=== PATIENT | male | born 1975 | race Caucasian/White ===

== ENCOUNTER → 2018-06-21 08:22 | Outpatient (CLI) | payer OTHER, SELFPAY ==
[2018-06-21 09:45] LABS: Cholesterol 151 mg/dL (200); Glucose 93 mg/dL (74-106); High Density Lipoprotein 38 mg/dL; PSA,Total - Annual Screen 0.62 ng/mL (0.00-4.00); Triglycerides 68 mg/dL; Very Low Density Lipoprotein 14 mg/dL (5-40)
== END ==
PROVIDERS: Family Provider Family Medicine; PCP Family Medicine; Referring Provider Family Medicine; Visit Provider Family Medicine
DX: Z13.220 Encounter for screening for lipoid disorders (principal); Z13.1 Encounter for screening for diabetes mellitus; Z80.42 Family history of malignant neoplasm of prostate
CPT/HCPCS: 36415; 80061; 82947; 84153; G0103

== ENCOUNTER → 2019-11-14 09:20 | Outpatient (CLI) | payer OTHER, SELFPAY ==
[2019-11-12 17:39] VITALS: BMI 30.7
--- NOTE | 2019-11-14 09:29 | RAD_ITS ---
STUDY: X-RAY - SACRUM/COCCYX REASON FOR EXAM: Male, 44 years old. posterior pelvic pain when lying down, no trauma TECHNIQUE: 3 view(s) of the sacrum and coccyx were obtained. COMPARISON: None. FINDINGS: There is degenerative arthrosis of the bilateral sacroiliac joints. Normal visualized sacral ala and fused sacral bodies. Normal sacrococcygeal junction with a normal angulation. Normal coccygeal segments. The presacral soft tissue structures are unremarkable. There is no demonstrated fracture. RAD/Sacrum-Coccyx min 2 Views IMPRESSION: Unremarkable x-rays of the sacrum and coccyx. Electronically Signed: Camila Soto MD at 3:13 EDT , Service support ,
[2019-11-14 09:37] LABS: Bacteria 0 SEEN /hpf (None Seen); Mucous, Urine 0 SEEN /hpf (<or=2+); Red Blood Cells-Urine 0 SEEN /hpf (0-5); Squamous Epithelial Cells - UA 0 SEEN /hpf (0-5); White Blood Cells 0 SEEN /hpf (0-5)
[2019-11-14 10:20] LABS: Absolute Lymphocyte Count 2.17 X10^3/uL (0.83-4.51); Absolute Neutrophil Count 2.5 X10^3/uL (2.0-7.7); Basophil# 0.05 X10^3/uL; Basophil% 0.9 % (0-1); Eosinophil# 0.12 X10^3/uL; Eosinophils% 2.2 % (0-5); Hematocrit 50.8 % (40-54); Hemoglobin 16.3 g/dL (13.0-16.5); Lymphocyte # 2.17 X10^3/ul (4.0); Lymphocyte % 39.5 % (19-41); Mean Corp Hgb Conc 32.1 g/dL (32-36); Mean Corpuscular Hgb 28.5 pg (27.0-32.0); Mean Platelet Vol. 10.6 fl (6.2-12.0); Monocyte# 0.61 X10^3/uL; Monocyte% 11.1 % (0-10); NRBC Flagged by Analyzer 0 % (0-5); Neutrophil # 2.54 X10^3/uL (2.7-7.7); Neutrophil % 46.1 % (47-70); Platelet Count 247 K/mm3 (150-450); RBC Distribution Width CV 13.2 % (11.6-14.6); Red Blood Count 5.71 M/mm3 (4.6-6.2); White Blood Count 5.5 K/mm3 (4.4-11.0)
[2019-11-14 10:41] LABS: Erythrocyte Sedimentation Rate 2 mm/hr (0-15)
[2019-11-14 10:44] LABS: Color, Urine Yellow (Yellow); Glucose, Dipstick Normal (Normal); Ketone-Dipstick Negative (Negative); Leukocyte Esterase-Dipstick Negative /ul (Negative); Nitrite-Dipstick Negative (Negative); Occult Blood-Urine Negative /ul (Negative); Protein-Dipstick Negative (Negative); Specific Gravity, Urine 1.025 (1.002-1.030); Urine Bilirubin Dipstick Negative (Negative); Urine Clarity Clear (Clear); Urine Urobilinogen Normal (Normal)
[2019-11-14 11:04] LABS: ALB/GLOB Ratio 1.1 RATIO (0.9-2.4); AST(SGOT) 18 U/L (15-37); Alanine Aminotransfer ALT/SGPT 31 U/L (16-61); Alkaline Phosphatase 84 U/L (45-117); Anion Gap 5 (5-15); BUN 21 mg/dL (7-18); BUN/Creat Ratio 20.8 RATIO (10-20); Calcium,Total 8.7 mg/dL (8.5-10.1); Chloride 109 mmol/L (98-107); Cholesterol 159 mg/dL (200); Creatinine, Serum 1.01 mg/dL (0.70-1.30); EST Glomerular Filtration Rate 86 mL/min (>60); Est Glom Filt Rate - Afr Amer 104 mL/min (>60); Globulin 3.5 g/dL (2.2-4.2); Glucose 90 mg/dL (74-106); High Density Lipoprotein 37 mg/dL; PSA,Total - Annual Screen 0.51 ng/mL (0.00-4.00); Potassium 4.3 mmol/L (3.5-5.1); Protein, Total 7.5 g/dL (6.4-8.2); Rheumatoid Factor < 10.0 IU/mL (<15); Sodium Level 143 mmol/L (136-145); Triglycerides 62 mg/dL; Very Low Density Lipoprotein 12 mg/dL (5-40)
== END ==
PROVIDERS: PCP Internal Medicine; Referring Provider Internal Medicine; Visit Provider Internal Medicine
DX: Z00.00 Encounter for general adult medical examination without abnormal findings (principal); Z12.5 Encounter for screening for malignant neoplasm of prostate; M54.9 Dorsalgia, unspecified; G89.29 Other chronic pain; M19.90 Unspecified osteoarthritis, unspecified site; R35.0 Frequency of micturition
CPT/HCPCS: 36415; 72220; 80053; 80061; 81001; 84153; 85025; 85652; 86431; G0103

== ENCOUNTER → 2020-12-12 11:44 | Outpatient (CLI) | payer OTHER, SELFPAY ==
[2020-12-12 11:08] VITALS: BMI 33.6
[2020-12-12 12:00] LABS: Bacteria 0 SEEN /hpf (None Seen); Mucous, Urine 0 SEEN /hpf (<or=2+); Red Blood Cells-Urine 0 SEEN /hpf (0-5); Squamous Epithelial Cells - UA 0 SEEN /hpf (0-5); White Blood Cells 0 SEEN /hpf (0-5)
[2020-12-12 15:16] LABS: Color, Urine Yellow (Yellow); Glucose, Dipstick Normal (Normal); Ketone-Dipstick Negative (Negative); Leukocyte Esterase-Dipstick Negative /ul (Negative); Nitrite-Dipstick Negative (Negative); Occult Blood-Urine Negative /ul (Negative); Protein-Dipstick Negative (Negative); Specific Gravity, Urine 1.015 (1.002-1.030); Urine Bilirubin Dipstick Negative (Negative); Urine Clarity Clear (Clear); Urine Urobilinogen Normal (Normal); Urine pH 6.5 (5.0 - 8.0)
[2020-12-12 15:21] LABS: Absolute Lymphocyte Count 2.13 X10^3/uL (0.83-4.51); Absolute Neutrophil Count 4.4 X10^3/uL (2.0-7.7); Basophil# 0.04 X10^3/uL; Basophil% 0.5 % (0-1); Eosinophils% 2.6 % (0-5); Hematocrit 46.6 % (40-54); Hemoglobin 15.3 g/dL (13.0-16.5); Lymphocyte # 2.13 X10^3/ul (4.0); Lymphocyte % 27.5 % (19-41); Mean Corp Hgb Conc 32.8 g/dL (32-36); Mean Corpuscular Hgb 29.7 pg (27.0-32.0); Mean Corpuscular Volume 90.5 fL (80-94); Mean Platelet Vol. 10.8 fl (6.2-12.0); Monocyte# 0.94 X10^3/uL; Monocyte% 12.1 % (0-10); NRBC Flagged by Analyzer 0 % (0-5); Neutrophil # 4.42 X10^3/uL (2.7-7.7); Platelet Count 262 K/mm3 (150-450); RBC Distribution Width CV 12.6 % (11.6-14.6); RBC Distribution Width SD 41.2 fl (35.1-43.9); Red Blood Count 5.15 M/mm3 (4.6-6.2); White Blood Count 7.8 K/mm3 (4.4-11.0)
[2020-12-12 15:43] LABS: ALB/GLOB Ratio 1.1 RATIO (0.9-2.4); AST(SGOT) 24 U/L (15-37); Alanine Aminotransfer ALT/SGPT 47 U/L (16-61); Albumin, Serum 3.6 g/dL (3.2-5.0); Alkaline Phosphatase 84 U/L (45-117); Anion Gap 6 (5-15); BUN 15 mg/dL (7-18); BUN/Creat Ratio 16.7 RATIO (10-20); Calcium,Total 8.5 mg/dL (8.5-10.1); Chloride 107 mmol/L (98-107); Cholesterol 175 mg/dL (200); EST Glomerular Filtration Rate 98 mL/min (>60); Est Glom Filt Rate - Afr Amer 118 mL/min (>60); Globulin 3.4 g/dL (2.2-4.2); Glucose 85 mg/dL (74-106); High Density Lipoprotein 38 mg/dL; PSA,Total - Annual Screen 0.54 ng/mL (0.00-4.00); Potassium 3.7 mmol/L (3.5-5.1); Sodium Level 139 mmol/L (136-145); Triglycerides 257 mg/dL; Very Low Density Lipoprotein 51 mg/dL (5-40)
== END ==
PROVIDERS: PCP Internal Medicine; Referring Provider Internal Medicine; Visit Provider Internal Medicine
DX: Z00.00 Encounter for general adult medical examination without abnormal findings (principal); Z12.5 Encounter for screening for malignant neoplasm of prostate; K21.9 Gastro-esophageal reflux disease without esophagitis; R35.1 Nocturia
CPT/HCPCS: 36415; 80053; 80061; 81001; 84153; 85025; G0103

== ENCOUNTER → 2021-02-14 12:00 | Outpatient (CLI) | payer OTHER, SELFPAY ==
[2020-12-12 11:08] VITALS: BMI 33.6
== END ==
PROVIDERS: PCP Internal Medicine; Referring Provider Internal Medicine; Visit Provider Internal Medicine
DX: G47.10 Hypersomnia, unspecified (principal)
CPT/HCPCS: 95806

== ENCOUNTER 2021-02-20 15:13 | Emergency (ER) | payer OTHER, SELFPAY ==
[2020-12-20 16:33] VITALS: BMI 33.4
[2021-02-20 15:14] VITALS: BP 164/91; PULSE 75; RESP 22; TEMP 37; O2SAT 97; BMI 33.7
--- NOTE | 2021-02-20 15:15 | NURSING ---
NO OLD EKGS
--- NOTE | 2021-02-20 15:49 | EKG12_ITS ---
Test Reason : CP Blood Pressure : / mmHG Vent. Rate : 077 BPM Atrial Rate : 077 BPM P-R Int : 166 ms QRS Dur : 098 ms QT Int : 380 ms P-R-T Axes : 057 009 002 degrees QTc Int : 430 ms Sinus rhythm with Premature atrial complexes Otherwise normal ECG Confirmed by PRIYA WORLEY, CLARE ([id number]), assistant production editor HLODEN BAJWA ([id number]) on 02/23/2021 9:57:47 AM Referred By: Confirmed By:CLARE POWERS MD
--- NOTE | 2021-02-20 15:55 | RAD_ITS ---
INDICATION: chest pain EXAMINATION/TECHNIQUE: X-RAY - XR Chest 1 View COMPARISON: None. FINDINGS: The lungs are clear. The cardiomediastinal silhouette is unremarkable. No pleural effusion or pneumothorax. No acute osseous abnormalities. RAD/Chest 1 View (Portable) IMPRESSION: No acute radiographic abnormalities. Electronically Signed: Scotty Oakes MD at 16:08 EDT Tel , Service support ,
--- NOTE | 2021-02-20 16:05 | ED.VIS.CHEST ---
HPI History of Present Illness Chief Complaint: Chest Pain Narrative Narrative: Patient presenting for evaluation secondary to chest pain. Patient states that he has a tightness in the left side of his chest that radiates down his left arm. He states that it is associated with a feeling of coldness in his left arm as well as a sensation of weakness. He denies that he has any loss of function associated with this. He denies any shortness of breath. No nausea or vomiting. No lightheadedness or palpitations. Patient had a history of general anesthetic on as he had a hemorrhoidectomy at the [facility]. He denies any history of DVT or PE, no hemoptysis. Patient does not have any cardiovascular risk factors. Denies any fever. No visual changes. No difficulty with ambulating. Review of systems otherwise negative. [facility] Medical History (Updated 02/20/21 @ 18:[address] Omega Celis MD) Back problem Chronic posterior anal fissure Peterson catheter in place GERD (gastroesophageal reflux disease) Hypersomnolence IBS (irritable bowel syndrome) Internal hemorrhoid, bleeding Home Medications docusate sodium [Colace] 100 mg PO TID PRN PRN 02/20/21 [History Last Taken Unknown] oxycodone 5 mg PO Q4H PRN PRN 02/20/21 [History Last Taken Unknown] tamsulosin 0.4 mg PO DAILY 02/20/21 [History Last Taken Unknown] Allergy/AdvReac Type Severity Reaction Status Date / Time No Known Allergies Allergy Verified 02/20/21 08:32 Family History Father Prostate cancer Other Alcoholism Arthritis CHF (congestive heart failure) Cancer Diabetes Heart disease Myocardial infarction Surgical History History of colonoscopy History of hemorrhoidectomy (~02/2021) History of hemorrhoidectomy Social History Smoking Status: Never smoker alcohol intake: current alcohol intake frequency: holidays/special occasions only substance use type: does not use what type of physical activity do you participate in: none ROS ROS ED Constitutional Constitutional ED: Denies fever(s) Eyes Eyes: Denies change in vision ENT ENT ED: Denies rhinorrhea or sore throat Cardiovascular Cardiovascular: Reports chest pain Respiratory/Chest Respiratory/Chest: Denies cough, dyspnea or dyspnea on exertion Gastrointestinal Gastrointestinal: Denies abdominal pain, nausea or vomiting Genitourinary Genitourinary ED: Denies dysuria Musculoskeletal Musculoskeletal: Denies myalgias or neck pain Integumentary Denies rash Neurologic Neurologic: Reports weakness Psychiatric Psychiatric: Denies depression Endocrine Endocrinology: Denies polydipsia or polyuria Hematologic/Lymphatic Hematologic/Lymphatic: Denies easy bleeding or easy bruising Allergic/Immunologic Allergic/Immunologic ED: Denies urticaria EXAM Physical Exam Const Vital Signs: 02/20/21 15:14 02/20/21 15:20 02/20/21 15:51 Temperature 98.6 F Temperature Source Temporal Pulse Rate 75 Respiratory Rate 22 H Respiratory Pattern Normal Blood Pressure 164/91 H Blood Pressure Mean 115 Pulse Ox 97 Oxygen Delivery Method Room Air Room Air 02/20/21 16:34 02/20/21 18:00 Temperature Temperature Source Pulse Rate 69 80 Respiratory Rate 18 15 Respiratory Pattern Blood Pressure 134/82 H Blood Pressure Mean 99 Pulse Ox 97 97 Oxygen Delivery Method Room Air Positive well nourished and well developed General Appearance ED: well developed and NAD HEENT Reports moist mucous membranes normocephalic and atraumatic Eyes EOMs intact bilaterally Neck no lymphadenopathy, supple and no JVD Chest Wall inspection of chest normal and palpation of chest normal Chest Narrative: No evidence of vesicular rash Resp normal respiratory effort and clear to auscultation bilaterally Auscultation: Negative for rales, rhonchi or wheezes Cardio regular rate, regular rhythm, S1 normal heart sound, S2 normal heart sound and no murmurs Peripheral Pulses: radial pulses present and posterior tibial pulses present GI normal to inspection, nondistended, normoactive bowel sounds, soft to palpation and non-tender Extremity normal to inspection Extremity Narrative: Calves are supple no palpable cord Patient complains that his left arm is cold, his arm actually has objectively a normal temperature when compared to the contralateral side with normal capillary refill. No reproduction of pain with range of motion. 5 out of 5 strength. General Extremety ED: Negative for edema or tenderness General Extremity: Negative for edema Neuro oriented x3 and no sensory deficits noted Sensorium / Orientation: awake and alert Motor Exam: strength abnormal Psych mental status grossly normal Skin no rashes or lesions noted Heart Score History: Moderately Suspicious ECG: Normal Age: </= 45 years Risk Factors: No Risk Factors Troponin: </= Normal Limit Score: 1 MDM MDM MDM Narrative Medical decision making narrative: Patient presented for evaluation secondary to chest pain. EKG was found to be unremarkable. Chest x-ray by my personal review as well as radiology shows no evidence of acute pathology no evidence of pneumonia or pneumothorax or other abnormalities. CBC chemistry unremarkable, troponin was negative. D-dimer was obtained on the patient and was noted to be elevated at 0.63. Patient is postoperative, so I will perform CT angiogram. This is negative per radiology. Patient's heart score is a maximum of 2, I do not think that this is a high risk presentation for cardiovascular disease. Likewise the patient complains of this potential weakness associated with it but it is not at all objective and he does not have any signs of arrhythmia I am not concerned for the possibility of stroke in this patient. This point I believe that he has been adequately worked up to be discharged. Patient was given reassurance. Patient was discharged in stable condition. Lab Data Labs: Laboratory Results - last 24 hr 02/20/21 02/20/21 02/20/21 15:20 15:20 15:20 WBC 8.7 RBC 4.83 Hgb 14.3 Hct 43.4 MCV 89.9 MCH 29.6 MCHC 32.9 RDW Std Deviation 40.3 RDW Coeff of Emperatriz 12.2 Plt Count 305 MPV 10.1 Immature Gran % (Auto) 0.300 Neut % (Auto) 57.4 Lymph % (Auto) 26.1 [place] % (Auto) 13.2 H Eos % (Auto) 2.4 Baso % (Auto) 0.6 Absolute Neuts (auto) 5.0 Absolute Lymphs (auto) 2.26 Nucleated RBC % 0 D-Dimer Quant (PE/DVT) 0.63 H* Sodium 142 Potassium 3.5 Chloride 104 Carbon Dioxide 31.0 Anion Gap 7 BUN 9 Creatinine 1.03 Estim Creat Clear Calc 103.43 Est GFR (MDRD) Af Amer 101 Est GFR (MDRD) Non-Af 83 BUN/Creatinine Ratio 8.7 L Glucose 97 Calcium 9.1 Troponin I < 0.015 Radiography Chest X-Ray - ED: 2 View, Read by ED Physician and Normal Diagnostic Testing: Radiology Impression Chest X-Ray 02/20/21 15:55 IMPRESSION: No acute radiographic abnormalities. Electronically Signed: Scotty Oakes MD at 16:08 EDT Tel , Service support , Venous Doppler Study 02/20/21 16:11 Interpretation Summary No evidence for acute deep venous thrombosis bilateral upper extremities with patent and compressible bilateral cephalic and basilic veins Ordering Physician: Omega Celis Referring Physician: Cheo De Leon Performed By: Odalis Odom RD, RVT ? Chest CTA 02/20/21 17:11 IMPRESSION: Normal CTA chest examination, without a demonstrated pulmonary embolism or arterial dissection. Electronically Signed: Jaskaran Ring MD at 18:06 EDT , Service support , EKG Initial EKG: Attestation: I personally reviewed and interpreted this EKG as follows: (Sinus rhythm at 77 with occasional PACs noted. Isoelectric ST segments normal T waves no evidence of right ventricular strain no evidence of WPW or Brugada morphology.) Discharge Plan Triage Chief Complaint: Chest Pain ED Provider: Omega Celis Dx/Rx/DC Orders Clinical Impression: Chest pain Instructions: ED Chest Pain, Noncardiac Prescriptions: No Action tamsulosin 0.4 mg capsule 0.4 mg PO DAILY RF: 0 docusate sodium [Colace] 100 mg Capsule 100 mg PO TID PRN PRN (Reason: Constipation) RF: 0 oxycodone 5 mg tablet 5 mg PO Q4H PRN PRN (Reason: Pain) RF: 0 Primary Care Provider: Cheo De Leon Referrals: Cheo De Leon MD [Primary Care Provider] - 3-5 Days Disposition Disposition: Home, self care
[2021-02-20 16:11] LABS: Absolute Lymphocyte Count 2.26 X10^3/uL (0.83-4.51); Basophil# 0.05 X10^3/uL; Basophil% 0.6 % (0-1); Eosinophil# 0.21 X10^3/uL; Eosinophils% 2.4 % (0-5); Hematocrit 43.4 % (40-54); Hemoglobin 14.3 g/dL (13.0-16.5); Lymphocyte # 2.26 X10^3/ul (0.83-4.51); Lymphocyte % 26.1 % (19-41); Mean Corp Hgb Conc 32.9 g/dL (32-36); Mean Corpuscular Hgb 29.6 pg (27.0-32.0); Mean Corpuscular Volume 89.9 fL (80-94); Mean Platelet Vol. 10.1 fl (6.2-12.0); Monocyte# 1.14 X10^3/uL; Monocyte% 13.2 % (0-10); NRBC Flagged by Analyzer 0 % (0-5); Neutrophil # 4.96 X10^3/uL (2.7-7.7); Neutrophil % 57.4 % (47-70); Platelet Count 305 K/mm3 (150-450); RBC Distribution Width CV 12.2 % (11.6-14.6); RBC Distribution Width SD 40.3 fl (35.1-43.9); Red Blood Count 4.83 M/mm3 (4.6-6.2); White Blood Count 8.7 K/mm3 (4.4-11.0)
--- NOTE | 2021-02-20 16:11 | VDUE_ITS ---
Reason For Study: BUE PAIN Right Proximal Left Proximal Right jugular vein is spontaneous, widely Left jugular vein is spontaneous, widely patent, phasic, with no intraluminal patent, phasic, with no intraluminal echogenicity noted. echogenicity noted. Right subclavian vein is spontaneous, widely Left subclavian vein is spontaneous, widely patent, phasic, with no intraluminal patent, phasic, with no intraluminal echogenicity noted. echogenicity noted. Right Lower Arm Left Arm Right radial vein is compressible. Left axillary vein is spontaneous, patent, Right ulnar vein is compressible. phasic, competent, compressible and Right Arm demonstrates augmentation. Right axillary vein is spontaneous, patent, Left brachial vein is compressible. phasic, competent, compressible and Left cephalic vein is compressible. demonstrates augmentation. Left basilic vein is compressible. Right brachial vein is compressible. Left Lower Arm Right cephalic vein is compressible. Left radial vein is compressible. Right basilic vein is compressible. Left ulnar vein is compressible. VL/Venous Duplex US - [place] Extrem Interpretation Summary No evidence for acute deep venous thrombosis bilateral upper extremities with p atent and compressible bilateral cephalic and basilic veins Ordering Physician: Omega Celis Referring Physician: Cheo De Leon Performed By: Odalis Odom, RDCS, RVT ?
[2021-02-20 16:26] LABS: Anion Gap 7 (5-15); BUN 9 mg/dL (7-18); BUN/Creat Ratio 8.7 RATIO (10-20); Calcium,Total 9.1 mg/dL (8.5-10.1); Chloride 104 mmol/L (98-107); Creatinine, Serum 1.03 mg/dL (0.70-1.30); EST Glomerular Filtration Rate 83 mL/min (>60); Est Glom Filt Rate - Afr Amer 101 mL/min (>60); Estimated Creatinine Clearance 103.43 ml/min; Glucose 97 mg/dL (74-106); Potassium 3.5 mmol/L (3.5-5.1); Sodium Level 142 mmol/L (136-145)
[2021-02-20 16:34] VITALS: BP 134/82; PULSE 69; RESP 18; O2SAT 97
[2021-02-20 16:57] LABS: D-Dimer Quantitative (DVT/PE) 0.63 FEU/ug/m (0.27-0.49)
--- NOTE | 2021-02-20 17:11 | CT_ITS ---
STUDY: CTA CHEST REASON FOR EXAM: Male, 45 years old. Chest pain RADIATION DOSAGE (If Supplied By Facility): CTDIvol = ( 12.09 ) mGy, DLP = ( 450.9 ) mGycm TECHNIQUE: The examination was performed with the intravenous administration of IV 100mL Isovue-370. Post-processing of the angiographic images was performed, with multiplanar reformation and 3D reconstruction. Individualized dose optimization techniques were used for this CT. COMPARISON: Chest x-ray 02/20/2021 FINDINGS: Normal enhancement of the main pulmonary artery and right and left pulmonary arteries. Normal enhancement of the bilateral peripheral pulmonary arteries. There is no demonstrated pulmonary embolism. Normal thoracic aorta and visualized great vessels. There is no demonstrated aortic dissection. Normal heart and pericardium. Normal mediastinum. Normal hilar regions. Normal visualized trachea and bronchi. The lungs are well expanded. Normal pulmonary parenchyma. Normal pleura. Normal chest wall structures. Normal osseous structures. Normal visualized upper abdomen. CT/CTA Chest W/WO Contrast IMPRESSION: Normal CTA chest examination, without a demonstrated pulmonary embolism or arterial dissection. Electronically Signed: Jaskaran Ring MD at 18:06 EDT , Service support ,
[2021-02-20 18:00] VITALS: PULSE 80; RESP 15; O2SAT 97
[2021-02-20 19:00] VITALS: PULSE 78
[2021-02-20 19:02] VITALS: RESP 18
== END 2021-02-20 19:02 | disposition home or self-care (01) ==
PROVIDERS: Emergency Provider Emergency Medicine; PCP Internal Medicine
DX: R07.9 Chest pain, unspecified (principal); R79.89 Other specified abnormal findings of blood chemistry; R53.1 Weakness; K21.9 Gastro-esophageal reflux disease without esophagitis; K58.9 Irritable bowel syndrome, unspecified; K64.8 Other hemorrhoids; Z79.899 Other long term (current) drug therapy
CPT/HCPCS: 71045; 71275; 80048; 84484; 85025; 85379; 93005; 93970; 99284; Q9967; A4216

== ENCOUNTER → 2021-05-29 | Outpatient (CLI) | payer OTHER, SELFPAY | END | disposition home or self-care (01) | LOC: LABSPEC 07:49 | PROVIDERS: PCP Internal Medicine; Referring Provider Physician Assistant; Visit Provider Physician Assistant | DX: Z20.822 Contact with and (suspected) exposure to COVID-19 (principal) | CPT/HCPCS: 87635; U0005; U0003 ==

== ENCOUNTER → 2022-04-19 | Outpatient (CLI) | payer OTHER, SELFPAY ==
[2022-04-19 13:04] LABS: Absolute Lymphocyte Count 2.61 X10^3/uL (0.83-4.51); Absolute Neutrophil Count 3.6 X10^3/uL (2.0-7.7); Basophil# 0.06 X10^3/uL; Basophil% 0.8 % (0-1); Eosinophil# 0.19 X10^3/uL; Eosinophils% 2.6 % (0-5); Hematocrit 48.7 % (40-54); Hemoglobin 16.3 g/dL (13.0-16.5); Lymphocyte # 2.61 X10^3/ul (0.83-4.51); Lymphocyte % 35.4 % (19-41); Mean Corp Hgb Conc 33.5 g/dL (32-36); Mean Corpuscular Hgb 29.8 pg (27.0-32.0); Mean Platelet Vol. 10.6 fl (6.2-12.0); Monocyte# 0.91 X10^3/uL; Monocyte% 12.3 % (0-10); NRBC Flagged by Analyzer 0 % (0-5); Neutrophil # 3.58 X10^3/uL (2.7-7.7); Neutrophil % 48.5 % (47-70); Platelet Count 283 K/mm3 (150-450); RBC Distribution Width CV 12.4 % (11.6-14.6); RBC Distribution Width SD 40.5 fl (35.1-43.9); Red Blood Count 5.47 M/mm3 (4.6-6.2); White Blood Count 7.4 K/mm3 (4.4-11.0)
[2022-04-19 13:42] LABS: AST(SGOT) 34 U/L (15-37); Alanine Aminotransfer ALT/SGPT 74 U/L (16-61); Albumin, Serum 3.8 g/dL (3.2-5.0); Alkaline Phosphatase 97 U/L (45-117); Anion Gap 5 (5-15); BUN 12 mg/dL (7-18); BUN/Creat Ratio 12.6 RATIO (10-20); Calcium,Total 8.8 mg/dL (8.5-10.1); Chloride 104 mmol/L (98-107); Cholesterol 178 mg/dL (200); Creatinine, Serum 0.95 mg/dL (0.70-1.30); EST Glomerular Filtration Rate 91 mL/min (>60); Est Glom Filt Rate - Afr Amer 110 mL/min (>60); Globulin 3.7 g/dL (2.2-4.2); Glucose 85 mg/dL (74-106); High Density Lipoprotein 37 mg/dL; PSA,Total - Annual Screen 0.45 ng/mL (0.00-4.00); Potassium 3.7 mmol/L (3.5-5.1); Protein, Total 7.5 g/dL (6.4-8.2); Sodium Level 137 mmol/L (136-145); Triglycerides 171 mg/dL; Very Low Density Lipoprotein 34 mg/dL (5-40)
== END | disposition home or self-care (01) ==
LOC: LAB 11:58
PROVIDERS: PCP Internal Medicine; Referring Provider Internal Medicine; Visit Provider Internal Medicine
DX: Z00.00 Encounter for general adult medical examination without abnormal findings (principal); I10 Essential (primary) hypertension; Z12.5 Encounter for screening for malignant neoplasm of prostate
CPT/HCPCS: 36415; 80053; 80061; 84153; 85025; G0103

== ENCOUNTER → 2022-09-07 | Outpatient (CLI) | payer OTHER, SELFPAY ==
--- NOTE | 2022-09-07 06:30 | RAD_ITS ---
INDICATION: cough, dyspnea EXAMINATION: Frontal and lateral views of the chest. COMPARISON: Chest x-ray February 20, 2021. FINDINGS: Frontal and lateral views of the chest were obtained. The cardiac silhouette is not enlarged. No confluent airspace disease. No pleural effusion or pneumothorax. RAD/Chest PA and Lateral IMPRESSION: No acute pulmonary disease. Electronically Signed: Ranjith Capellan MD at 6:54 EST ,
== END | disposition home or self-care (01) ==
LOC: RAD 06:28
PROVIDERS: PCP Internal Medicine; Referring Provider Nurse Practitioner Family; Visit Provider Nurse Practitioner Family
DX: R06.00 Dyspnea, unspecified (principal); R05.9 Cough, unspecified
CPT/HCPCS: 71046

== ENCOUNTER → 2022-09-27 | Outpatient (CLI) | payer OTHER, SELFPAY | END | disposition home or self-care (01) | LOC: SL 20:08 | PROVIDERS: PCP Internal Medicine; Visit Provider Nurse Practitioner Family | DX: G47.10 Hypersomnia, unspecified (principal) | CPT/HCPCS: 95810 ==

== ENCOUNTER → 2022-10-26 | Outpatient (CLI) | payer OTHER, SELFPAY ==
--- NOTE | 2022-10-26 10:56 | PFTCOMP_ITS ---
COMPLETE PULMONARY FUNCTION TEST INTERPRETATION Brief HPI: Patient is a 47-year-old male, currently under the care of Noé Navarrete, who presents to [facility] for complete pulmonary function tests secondary to diagnosis of dyspnea. Respiratory therapist reports good effort and reproducible results. Interpretation: Forced expiration spirometry shows no large airways obstructive ventilatory defect with an FEV1 of 70% predicted. There is no significant bronchodilator response by strict ATS criteria. Spirograms are of good quality and plateau normally. The respiratory flow volume loop shows decreased expiratory flow rates at high lung volumes consistent with small airways obstruction. Lung volumes by body plethysmography show a decreased total lung capacity at 5.75 L, 76% predicted. All other lung volumes are reduced symmetrically. Diffusion capacity by carbon monoxide is elevated at 154% predicted. The airway resistance is elevated. No previous pulmonary function tests were available for review. Impression: Mild restrictive ventilatory defect with some stigmata suggestive of small airways obstruction
== END | disposition home or self-care (01) ==
LOC: PSN 06:54
PROVIDERS: PCP Internal Medicine; Visit Provider Nurse Practitioner Family
DX: R06.00 Dyspnea, unspecified (principal)
CPT/HCPCS: 94060; 94726; 94729

== ENCOUNTER → 2022-12-11 | Outpatient (CLI) | payer OTHER, SELFPAY ==
--- NOTE | 2022-12-11 12:26 | CT_ITS ---
STUDY: CTA CHEST REASON FOR EXAM: Male, 47 years old. ? Interstitial lung disease. Increasing shortness of breath. RADIATION DOSAGE (If Supplied By Facility): CTDIvol = ( 14.88 ) mGy, DLP = ( 517.88 ) mGycm TECHNIQUE: The examination was performed with the intravenous administration of IV 100mL Isovue-370. Post-processing of the angiographic images was performed, with multiplanar reformation and 3D reconstruction. Individualized dose optimization techniques were used for this CT. COMPARISON: Comparison is made with prior examination dated February 20, 2021. FINDINGS: Normal enhancement of the main pulmonary artery and right and left pulmonary arteries. Normal enhancement of the bilateral peripheral pulmonary arteries. There is no demonstrated pulmonary embolism. Normal thoracic aorta and visualized great vessels. There is no demonstrated aortic dissection. Normal heart and pericardium. Coronary artery calcification is not present. Normal mediastinum. Normal hilar regions. Normal visualized trachea and bronchi. The lungs are well expanded. Minimal increased markings in the posterior aspect of the superior segment of the right lower lobe suggestive of possible early infiltrate. Normal pleura. Normal chest wall structures. Normal osseous structures. Normal visualized upper abdomen. CT/CTA Chest W/WO Contrast IMPRESSION: No evidence of pulmonary embolism. Focal area of groundglass appearance in the posterior aspect of the superior segment of the right lower lobe. This was not present on prior study and may represent early infiltrate. Electronically Signed: Marco Samaniego MD at 13:21 EDT ,
[2022-12-11 13:11] LABS: Absolute Lymphocyte Count 2.01 X10^3/uL (0.83-4.51); Absolute Neutrophil Count 4.3 X10^3/uL (2.0-7.7); Basophil# 0.05 X10^3/uL; Basophil% 0.7 % (0-1); Eosinophil# 0.14 X10^3/uL; Eosinophils% 1.9 % (0-5); Hematocrit 49.1 % (40-54); Hemoglobin 16.2 g/dL (13.0-16.5); Lymphocyte # 2.01 X10^3/ul (0.83-4.51); Lymphocyte % 27.1 % (19-41); Mean Corpuscular Hgb 29.7 pg (27.0-32.0); Mean Corpuscular Volume 89.9 fL (80-94); Mean Platelet Vol. 10.3 fl (6.2-12.0); Monocyte# 0.88 X10^3/uL; Monocyte% 11.9 % (0-10); NRBC Flagged by Analyzer 0 % (0-5); Neutrophil # 4.31 X10^3/uL (2.7-7.7); Neutrophil % 58.1 % (47-70); Platelet Count 297 K/mm3 (150-450); RBC Distribution Width CV 12.5 % (11.6-14.6); RBC Distribution Width SD 41.7 fl (35.1-43.9); Red Blood Count 5.46 M/mm3 (4.6-6.2); White Blood Count 7.4 K/mm3 (4.4-11.0)
[2022-12-11 13:38] LABS: BNP,B-Type NATRIURETIC PEPTIDE 2.7 pg/mL (0-100)
[2022-12-11 13:48] LABS: ALB/GLOB Ratio 1.2 RATIO (0.9-2.4); AST(SGOT) 38 U/L (15-37); Alanine Aminotransfer ALT/SGPT 71 U/L (16-61); Albumin, Serum 3.9 g/dL (3.2-5.0); Alkaline Phosphatase 98 U/L (45-117); Anion Gap 4 (5-15); BUN 13 mg/dL (7-18); BUN/Creat Ratio 13.8 RATIO (10-20); Calcium,Total 8.9 mg/dL (8.5-10.1); Chloride 105 mmol/L (98-107); Creatinine, Serum 0.94 mg/dL (0.70-1.30); EST Glomerular Filtration Rate 92 mL/min (>60); Est Glom Filt Rate - Afr Amer 111 mL/min (>60); Globulin 3.3 g/dL (2.2-4.2); Glucose 94 mg/dL (74-106); Potassium 3.5 mmol/L (3.5-5.1); Protein, Total 7.2 g/dL (6.4-8.2); Rheumatoid Factor < 10.0 IU/mL (<15); Sodium Level 137 mmol/L (136-145)
[2022-12-13 22:06] LABS: Cytoplasmic Ab (C-ANCA) <1:20 titer (Neg:<1:20); Immunoglobulin E 629 IU/mL (6-495)
[2022-12-14 15:19] LABS: Immunoglobulin G 1051 mg/dL (603-1613); Perinuclear Ab (P-ANCA) <1:20 titer (Neg:<1:20)
[2022-12-16 12:07] LABS: Alternaria alternata <0.10 kU/L (Class 0); Anti-Centromere B Ab <0.2 AI (0.0-0.9); Anti-Chromatin <0.2 AI (0.0-0.9); Anti-Jo <0.2 AI (0.0-0.9); Anti-Scleroderma-70 AB <0.2 AI (0.0-0.9); Bermuda Grass 0.12 kU/L (Class 0/I); Bluegrass, Kentucky <0.10 kU/L (Class 0); Cat Hair/Dander, Standard <0.10 kU/L (Class 0); D farinae Mite 2.12 kU/L (Class III); D pteronyssinus 1.75 kU/L (Class III); Dog Epithelia <0.10 kU/L (Class 0); Elm, American White 0.11 kU/L (Class 0/I); Oak, White 0.14 kU/L (Class 0/I); Plantain, English <0.10 kU/L (Class 0); RNP Ab <0.2 AI (0.0-0.9); Ragweed, Short/Common 0.78 kU/L (Class II); SJOGREN'S Anti-SS-A test < 0.2 AI (0.0-0.9); SJOGREN'S Anti-SS-B test < 0.2 AI (0.0-0.9); Smith Ab <0.2 AI (0.0-0.9)
[2022-12-17 11:11] LABS: Anti-dsDNA Ab 2 IU/mL (0-9); Mouse Urine <0.10 kU/L (Class 0)
== END | disposition home or self-care (01) ==
LOC: CT 12:09
PROVIDERS: PCP Internal Medicine; Referring Provider Internal Medicine; Visit Provider Internal Medicine
DX: R05.9 Cough, unspecified (principal); J98.4 Other disorders of lung; R06.00 Dyspnea, unspecified; R53.83 Other fatigue
CPT/HCPCS: 36415; 71275; 80053; 82784; 82785; 83880; 85025; 86003; 86225; 86235; 86256; 86431; Q9967

== ENCOUNTER → 2022-12-13 | Outpatient (CLI) | payer OTHER, SELFPAY ==
[2022-12-14 08:10] LABS: HEPATITIS B SURFACE AG Negative (Negative); Hepatitis B Core Ab Total Negative (Negative)
[2022-12-14 15:29] LABS: Hep B Surface Antibodies Reactive (.)
== END | disposition home or self-care (01) ==
LOC: PAVLAB 10:05
PROVIDERS: PCP Internal Medicine; Referring Provider Internal Medicine; Visit Provider Internal Medicine
DX: R94.5 Abnormal results of liver function studies (principal)
CPT/HCPCS: 36415; 86704; 86705; 86706; 86707; 86803; 87340; 87350

== ENCOUNTER → 2023-01-14 | Outpatient (CLI) | payer OTHER, SELFPAY ==
--- NOTE | 2023-01-14 13:54 | SP.MBSS_ITS ---
Modified Barium Swallow - Patient Information Study Date: 01/14/23 Study Time: 13:00 Direct Billable Minutes: 80 Total Minutes procedure & reportin Diagnosis: Cough (R05), GERD (K21.9) Referring Physician: Clifton Jean Reason for Referral: Objectively assess swallow function, assess risk for aspiration, and determine recommendations for least restrictive diet textures and compensatory strategies to improve safety of swallow. Medical History: The patient is a 47-year-old male with PMH including GERD, HTN, IBS, restrictive airway disease, seasonal allergies, PNA, and cough (SEE EMR for full PMH). Pt was recently seen by advanced practice rn, Dr. Sanabria, for cough and dyspnea. In pulmonology visit note from 12/11/2022, it was reported, ?Strong history supporting intermittent but recurrent swallowing difficulty and aspiration, with no other neurologic symptoms. GERD.? He was referred for MBSS to assess swallow function and concerns for aspiration. Per patient report, he has had increased incidences of swallowing food and drink the wrong way. He stated this occurs very variably. Some days drinks will go down the wrong way 3X daily, then he will go a week without difficulty. When food/drink go down the wrong way, it will cause him to experience bad coughing spells. He has not required the Heimlich or been unable to breath/speak through his swallowing difficulty. He does admit to eating and drinking with a rapid rate. He manages GERD with medication, which he has been on for 6 months. Current Diet Ordered: Regular textures / Thin liquids Dentition: WNL Mental Status: WNL Respiratory Status: Oxygenating on Room Air - Penetration-Aspiration Scale Penetration-Aspiration Scale: OBJECTIVE ASSESSMENT OF SWALLOW FUNCTION (QUANTITATIVE ? PER TRIAL): PENETRATION / ASPIRATION SCALE (VAZQUEZ): 1 = does not enter airway 2 = enters airway/above vocal folds/ejected 3 = enters airway/above vocal folds/not ejected 4 = enters airway/contacts vocal folds/ejected 5 = enters airway/contacts vocal folds/not ejected 6 = enters airway/below vocal folds/ejected 7 = enters airway/below vocal folds/not ejected despite effort 8 = enters airway/below vocal folds/no effort VIDEOFLOROSCOPIC SCALE SCORE (VAZQUEZ): Grade I = aspiration of material that has penetrated into the laryngeal vestibule, intact cough reflex Grade II = aspiration < 10 % of the bolus, intact cough reflex Grade III = aspiration of < 10 % of the bolus, reduced cough reflex or aspiration of > 10 % of the bolus, intact cough reflex Grade IV = aspiration of > 10 % of the bolus, reduced cough reflex - Penetration-Aspiration Scale Score Thin Liquid via teaspoon Result: 1= does not enter airway Thin Liquid via teaspoon Trial 2 Result: 1= does not enter airway Thin Liquid via small single sip from cup Result: 1= does not enter airway Thin Liquid via sequential sips from cup Result: 2= enter airway/above vocal folds/ejected - trace [place] Thick Liquid via small single sip from cup Result: 1= does not enter airway Pudding via teaspoon with esophageal screen Result: 1= does not enter airway 1/2 Cookie Result: 1= does not enter airway Thin Liquid via sequential sips from straw with esophageal screen Result: 2= enter airway/above vocal folds/ejected - Oral Phase Labial Seal: No Labial Escape Tongue Control During Bolus Hold: Posterior escape of less than half of bolus - thin liquids with sequential sips Bolus Preparation/Mastication: Timely and efficient chewing and mashing Bolus Transport/Lingual Motion: Brisk tongue motion Oral Residue: Residue collection on oral structures - piecemeal deglutition with cookie - Pharyngeal Phase Initiation of Pharyngeal Swallow: Bolus head in pyriforms Soft Palate Elevation: No bolus between soft palate and pharyngeal wall Laryngeal Elevation: Comp. Superior move thyroid cart w/comp. apprx arytenoid cart-epig pet Anterior Hyoid Excursion: Complete anterior movement Epiglottic Movement: Complete inversion Laryngeal Vestibule Closure at Height of Swallow: Incomplete; narrow column of air/contrast in laryngeal vestibule - trace laryngeal penetration 2X with full ejection Pharyngeal Stripping Wave: Present - complete Pharyngoesophageal Segment Opening: Complete distension and complete duration; no obstruction of flow Tongue Base Retraction: Narrow column of contrast between tongue base & post. pharyngeal wall Pharyngeal Residue: Trace residue within or on pharyngeal structures - Esophageal Phase Esophageal Clearance: Esophageal retention - minimal retention of pudding in mid esophagus - Diagnosis/Impression Diagnosis: Oropharyngeal swallow function grossly WNL Impression: Pt demonstrated posterior loss of sequential sips to the pyriforms prior to swallow onset; otherwise, pt demonstrated timely swallow onset. Piecemeal deglutition of cookie with timely and adequate mastication. Trace laryngeal penetration of sequential sips of thin liquids with full ejection from the laryngeal vestibule after the swallow. No aspiration observed. Trace pharyngeal residue after the swallow. Minimal esophageal retention of pudding in mid esophagus, no retrograde flow. - Recommendations Diet: Regular Textures, Thin Liquids Compensatory Strategies: Small Bites, Small Sips, Slow Rate, Alternate bites/solids and sips/liquids, Sitting upright, Remain sitting upright for 30 minutes after PO intake Recommend Repeat Modified Barium Swallow: No Need for Skilled Speech Therapy Services: No Education Completed: 1. Described result of evaluation. - Status Active ST Patient: Active - Contact Information [facility] Speech Therapy:: Reshma Hood M.A. [facility] [employer] Speech-Language Pathologist [facility] [address] [place] [address] [email or web address] [phone] 01/14/23 14:44
== END | disposition home or self-care (01) ==
LOC: RAD 13:06
PROVIDERS: PCP Internal Medicine; Referring Provider Internal Medicine; Visit Provider Internal Medicine
DX: R05.9 Cough, unspecified (principal); R06.00 Dyspnea, unspecified
CPT/HCPCS: 74230; 92611

== ENCOUNTER → 2023-05-04 | Outpatient (CLI) | payer OTHER, SELFPAY ==
[2023-05-04 11:05] LABS: Absolute Lymphocyte Count 2.31 X10^3/uL (0.83-4.51); Absolute Neutrophil Count 3.8 X10^3/uL (2.0-7.7); Basophil# 0.06 X10^3/uL; Basophil% 0.8 % (0-1); Eosinophils% 1.4 % (0-5); Hematocrit 48.3 % (40-54); Hemoglobin 15.6 g/dL (13.0-16.5); Lymphocyte # 2.31 X10^3/ul (0.83-4.51); Lymphocyte % 32.3 % (19-41); Mean Corp Hgb Conc 32.3 g/dL (32-36); Mean Corpuscular Hgb 29.4 pg (27.0-32.0); Mean Corpuscular Volume 91.1 fL (80-94); Mean Platelet Vol. 10.3 fl (6.2-12.0); Monocyte# 0.86 X10^3/uL; NRBC Flagged by Analyzer 0 % (0-5); Neutrophil % 53.2 % (47-70); Platelet Count 291 K/mm3 (150-450); RBC Distribution Width CV 12.8 % (11.6-14.6); RBC Distribution Width SD 43.1 fl (35.1-43.9); White Blood Count 7.2 K/mm3 (4.4-11.0)
[2023-05-04 11:35] LABS: ALB/GLOB Ratio 1.1 RATIO (0.9-2.4); AST(SGOT) 29 U/L (15-37); Alanine Aminotransfer ALT/SGPT 57 U/L (16-61); Albumin, Serum 3.7 g/dL (3.2-5.0); Alkaline Phosphatase 104 U/L (45-117); Anion Gap 6 (5-15); BUN 14 mg/dL (7-18); BUN/Creat Ratio 14.7 RATIO (10-20); Calcium,Total 8.7 mg/dL (8.5-10.1); Chloride 105 mmol/L (98-107); Cholesterol 180 mg/dL (200); Creatinine, Serum 0.95 mg/dL (0.70-1.30); EST Glomerular Filtration Rate 90 mL/min (>60); Est Glom Filt Rate - Afr Amer 109 mL/min (>60); Globulin 3.4 g/dL (2.2-4.2); Glucose 91 mg/dL (74-106); High Density Lipoprotein 45 mg/dL; Potassium 3.9 mmol/L (3.5-5.1); Protein, Total 7.1 g/dL (6.4-8.2); Sodium Level 140 mmol/L (136-145); Triglycerides 77 mg/dL; Very Low Density Lipoprotein 15 mg/dL (5-40)
== END | disposition home or self-care (01) ==
LOC: LAB 10:24
PROVIDERS: PCP Internal Medicine; Referring Provider Internal Medicine; Visit Provider Internal Medicine
DX: Z00.00 Encounter for general adult medical examination without abnormal findings (principal); Z12.5 Encounter for screening for malignant neoplasm of prostate
CPT/HCPCS: 36415; 80053; 80061; 84153; 85025; G0103

== ENCOUNTER → 2023-07-03 | Outpatient (CLI) | payer OTHER, SELFPAY ==
--- NOTE | 2023-07-03 16:49 | CT_ITS ---
INDICATION: follow up GGO in [facility] EXAMINATION: CT CHEST WITHOUT CONTRAST - CT Chest W/O Contrast Injection TECHNIQUE: Helically acquired images were obtained of the chest. A radiation dose optimization technique was used for this scan. IV Contrast dosage and agent: None. RADIATION DOSAGE (If Supplied By Facility): CTDIvol = ( 19.52 ) mGy, DLP = ( 673.25 ) mGycm COMPARISON: FINDINGS: LUNGS, PLEURA AND LARGE AIRWAYS: No masses, consolidation, or edema. Mild left basilar scarring/atelectasis. No pleural effusion or thickening. No pneumothorax. THYROID: No thyroid lesions. HEART AND PERICARDIUM: Heart size is normal. No pericardial effusion. CORONARY ARTERIES: Coronary artery calcification VESSELS: Thoracic aorta is not dilated. MEDIASTINUM AND EL: No mediastinal or hilar adenopathy. Esophagus is unremarkable. No hiatal hernia. UPPER ABDOMEN: No acute pathology. BONES: No suspicious lytic or blastic abnormality. CT/Chest without Contrast IMPRESSION: Mild left basilar scarring/atelectasis. Electronically Signed: Chester Patton DO at 18:35 EDT Reading Location ID and State: [facility] / [place] Tel [phone], Service support ,
== END | disposition home or self-care (01) ==
LOC: CT 16:45
PROVIDERS: PCP Internal Medicine; Visit Provider Internal Medicine
DX: J69.0 Pneumonitis due to inhalation of food and vomit (principal)
CPT/HCPCS: 71250

== ENCOUNTER → 2023-09-23 | Outpatient (CLI) | payer OTHER, SELFPAY ==
--- OUTSIDE RECORDS SUMMARY | 2023-09-23 06:52 | XMS RPT_ITS | CCD ---
Author Name Unknown Address [facility] [address] [place] [address] Organization [facility] Care Team Providers Care Weather Clerk Name Role Phone Claudine Murrell Unavailable Unavailable Medications Completed/Discontinued Medications Medication Drug Class(es) Dates Sig (Normalized) Sig (Original) polyethylene glycol 3350 425616 mg / potassium chloride 2820 mg / sodium bicarbonate 6360 mg / sodium chloride 5530 mg / sodium sulfate 95667 mg powder for oral solution (1 source) Osmotic Laxative Start: 05-31-2017 GOLYTELY 227.1 GM SOLR Take as directed PEG [id number] L-NASULF [id number] Hayden Wilson MD Problems Active Problems Problem Classification Problem Date Documented Date Episodic/Chronic Esophageal disorders (1 source) Gastroesophageal reflux disease; Translations: [Gastro-esophageal reflux disease without esophagitis] Onset: 05-31-2017 05-31-2017 Chronic Headache; including migraine (1 source) Migraine; Translations: [Migraine, unspecified, not intractable, without status migrainosus] Onset: 05-31-2017 05-31-2017 Chronic Past or Other Problems Problem Classification Problem Date Documented Da te Episodic/Chronic Gastrointestinal hemorrhage (1 source) Rectal hemorrhage; Translations: [Hemorrhage of anus and rectum] Onset: 05-31-2017 05-31-2017 Episodic Spondylosis; intervertebral disc disorders; other back problems (1 source) Low back pain; Translations: [Low back pain] Onset: 05-31-2017 05-31-2017 Episodic Results Test Name Value Interpretation Reference Range Facil ity Vital Signs Date Time Vital Sign Value Performing Clinician Facility 05-31-2017 09:36-0400 BMI (Body Mass Index) 28.99 kg/m2 Claudine Murrell [facility] Work Phone: 05-31-2017 09:36-0400 Body Temperature 97.8 [degF] [facility] Work Phone: 05-31-2017 09:36-0400 Body Temperature 97.81 [degF] [facility] Work Phone: 05-31-2017 09:36-0400 BP Diastolic 79 mm[Hg] [facility] Work Phone: 05-31-2017 09:36-0400 BP Systolic 116 mm[Hg] [facility] Work Phone: 05-31-2017 09:36-0400 Height 187.96 cm [facility] Work Phone: 05-31-2017 09:36-0400 Pulse (Heart Rate) 76 /min [facility] Work Phone: 05-31-2017 09:36-0400 Respiratory Rate 18 /min [facility] Work Phone: 05-31-2017 09:36-0400 Weight 102.42 kg [facility] Work Phone: Procedures Date Procedure Procedure Detail Performing Clinician Start: 02-13-2021 Antibody screen Plan of Treatment Date Care Activity Detail Author Start: 07-31-2017 End: 07-31-2017 Appointment Appointment [facility] Work Phone: Start: 05-31-2017 End: 05-31-2017 Appointment Appointment [facility] Work Phone: Start: 05-31-2017 End: 05-31-2017 Colonoscopy flx dx w/collj spec when pfrmd Colonoscopy [facility] Work Phone: Progress note 02-24-2021 Note Date & Type Note Facility 02-24-2021 Note HNO ID: [id number] Author: Heydi Dorado APRN.CHEMICAL WORKER Service: ? Author Type: Nurse Practitioner Type: Progress Notes Filed: 02/24/2021 2:01 PM Note Text: COLORECTAL SURGERY Post-Op 02/24/2021 Visit Yann Conley returns for a post-operative visit after undergoing surgery, on 02/16/2021 . SURGERY/PROCEDURE: 1. Examination under anesthesia with 3 column hemorrhoidectomy. 2. Colonoscopy with polypectomy. His post-operative period was uncomplicated. He is tolerating diet with an improving appetite, stable weight, and energy level is improving . He has no specific complaints, except pain. Just Tylenol and flomax which seems to be helping with pain. Pain is burning in nature. Stopped sitz bath since felt it was not helping. Did cold compress intermittently for pain/irritation. Bowel movements are not as painful, bowels are nice a soft. Recently stopped colace due to stool is very soft. Bowel stoppers: none. Current diet: Regular. N/V no. F/C no. Incision/wound is per patient is improving still sees intermittently some serosanguinous drainage or mucous, but this has greatly decreased. Path: FINAL DIAGNOSIS 1. Ascending colon polyp, polypectomy (A) - Tubular adenoma. 2. Hemorrhoids, resection (B) - Portion of anorectal tissue with dilated and thrombosed hemorrhoidal veins. Current Outpatient Medications Medication Sig Dispense Refill - acetaminophen (TYLENOL EXTRA STRENGTH ORAL) Take by mouth every 6 hours. - tamsulosin (FLOMAX) 0.4 mg Take 1 capsule by mouth daily at bedtime for 15 days. 15 capsule 0 - Bisacodyl (DULCOLAX) 5 mg tab Take 1 tablet by mouth as directed. Take 4 Dulcolax per your bowel prep before surery (Patient not taking: Reported on 02/24/2021 ) 4 tablet 0 - polyethylene glycol 3350 (MIRALAX, GLYCOLAX) 17 gram/dose powder Use as directed for Miralax / Gatorade Bowel Prep Kit (Patient not taking: Reported on 02/24/2021 ) 238 g 0 - docusate sodium (COLACE) 100 mg capsule Take 1 capsule by mouth twice daily for 14 days. (Patient not taking: Reported on 02/24/2021 ) 28 capsule 0 No current facility-administered medications for this visit. ALLERGIES Allergen Reactions - Environmental [Othe* Ht 185.4 cm (6' 1 ) Wt 113.9 kg (251 lb 1.6 oz) BMI 33.13 kg/m? Abdominal examination: soft, non-distended, and non-tender without masses or hernias. Wound is healing accordingly. Slightly inflammation on surrounding tissue but no indications of infection at this time. Anorectal: wound healing purulent drainage or erythema seen in area. Inventory Control Planner present: Yes, Adriana Fowler Assessment Assessment: Appetite: Eating and drinking well BMs: Soft slightly formed. Stopped taking colace due to bowel movements were getting watery. Incision/wound: Some mucous drainage seen up on exam, no erythema or purulent drainage seen. Overall doing ok, pain and discomfort occasionally issue but is resolved with PRN Tylenol and ointment itchy irritation that he occasionally has. States that overall pain and discomfort has been improving since initial surgery. Plan: Ensure that having high fiber diet, will be on this for mcc. Educated on importance of keeping stools soft. Use stool softners when indicated. Ensure staying well hydrated and getting enough fluids. Will need to get another scope in 5 years, went over pathology findings of polyp. Follow up with [facility] only if needed. Call with any questions or concerns. Heydi Dorado APRN.[facility] Progress note 02-13-2021 Note Date & Type Note Facility 02-13-2021 Note HNO ID: [id number] Author: Roselyn Sanchez RN Service: ? Author Type: Registered Nurse Type: Progress Notes Filed: 02/13/2021 11:11 AM Note Text: COLON AND RECTAL SURGERY Nursing Education Visit Yann Conley 1975 Surgeon: DR Simpson Reason for Education: [] Prep for Surgery [] Wound care [] Activity [] Bowel habits and medications [] Additional questions about surgery [] Nutrition / Diet [] Stoma care / function [] Other Present for Education: Patient Surgery: EUA, colonoscopy, hemorrhoidectomy Patient's overall appearance: GENERAL APPEARANCE: alert, no distress, cooperative, smiling The following details surrounding surgery were discussed: - Preoperative prep: Oral antibiotic - Length of hospital stay: OP - Anticipated diet at time of discharge from the hospital: Regular and Low Residue - Anticipated activity restrictions at time of discharge from the hospital: Continue all normal activities and exercise. Specific questions and topics discussed with the patient: None Prior to surgery, the following consults have been requested: [facility] Prior to surgery, the following lab tests have been ordered: BMP, CBC Additional counseling AND materials provided: Patient given verbal and written preop instructions and voices comprehension and compliance. []Pre-op booklet [x]Bowel prep instructions []Diet education handout [x]Surgical approach information [x]Surgeon specific instructions [x]Facility directions / map Roselyn Sanchez RN Time spent on patient education: 10 minutes [facility] Clinical Note 02-13-2021 Note Date & Type Note Facility 02-13-2021 Note Education (JESSIE) YANN CONLEY ([id number]) 1975 M Date Time Provider Department 02/13/21 10:30 AM NURSE PT ED [facility] Reason for Visit: Patient Education [91] Progress Notes: Roselyn Sanchez RN 02/13/2021 11:11 AM Signed COLON AND RECTAL SURGERY Nursing Education Visit Yann Conley 1975 Surgeon: DR Simpson Reason for Education: [] Prep for Surgery [] Wound care [] Activity [] Bowel habits and medications [] Additional questions about surgery [] Nutrition / Diet [] Stoma care / function [] Other Present for Education: Patient Surgery: EUA, colonoscopy, hemorrhoidectomy Patient's overall appearance: GENERAL APPEARANCE: alert, no distress, cooperative, smiling The following details surrounding surgery were discussed: - Preoperative prep: Oral antibiotic - Length of hospital stay: OP - Anticipated diet at time of discharge from the hospital: Regular and Low Residue - Anticipated activity restrictions at time of discharge from the hospital: Continue all normal activities and exercise. Specific questions and topics discussed with the patient: None Prior to surgery, the following consults have been requested: [facility] Prior to surgery, the following lab tests have been ordered: BMP, CBC Additional counseling AND materials provided: Patient given verbal and written preop instructions and voices comprehension and compliance. []Pre-op booklet [x]Bowel prep instructions []Diet education handout [x]Surgical approach information [x]Surgeon specific instructions [x]Facility directions / map Roselyn Sanchez RN Time spent on patient education: 10 minutes During your visit today, we recorded the following information about you: Allergies As of Date: 02/13/2021 Noted Allergy Reaction environmental [Other] 02/22/2007 Date Reviewed: 02/13/2021 Reviewed by: PATRICK Sprague - Fully Assessed Encounter Status:Closed by ROSELYN SANCHEZ on 02/13/21 [facility] Summary Purpose Family History No Family History Records Found Advance Directives No Advanced Directives Records Found Additional Source Comments (unrecognized sect ion and content) No Status Records Found INFORMATION SOURCE (unrecogn ized section and content) FOR RECORDS PERTAINING TO PATIENTS WHO ARE OR HAVE BEEN ENROLLED IN A CHEMICAL DEPENDENCY/SUBSTANCEABUSE PROGRAM, SOME INFORMATION MAY BE OMITTED. This clinical summary was aggregated from multiple sources. Caution should be exercised in using it in the provision of clinical care. This summary normalizes information from multiple sources, and as a consequence, information in this document may materially change the coding, format and clinical context of patient data. In addition, data may be omitted in some cases. CLINICAL DECISIONS SHOULD BE BASED ON THE PRIMARY CLINICAL RECORDS. [facility]. provides no warranty or guarantee of the accuracy or completeness of information in this document.
[2023-09-23] MEDS: Methacholine Chloride 18 ml neb kit INHALATION (07:15)
--- NOTE | 2023-09-24 12:51 | BRONCHALL ---
Bronchoprovocation Challenge Bronchoprovocation Challenge Bronchoprovocation Challenge: INTRODUCTION: The patient is a 48-year-old male who presents for a bronchoprovocation challenge secondary to a diagnosis of cough. Respiratory therapy reported good patient effort and reproducible results. INTERPRETATION: Initial spirometry did not show any large airways obstructive ventilatory defect with preserved airflows throughout. The patient was then given progressively increasing doses of methacholine in a standardized fashion. The patient's FEV1 did not change significantly with testing, indicating a negative bronchoprovocation challenge. IMPRESSION: Negative methacholine inhalation challenge.
== END | disposition home or self-care (01) ==
PROVIDERS: PCP Internal Medicine; Referring Provider Nurse Practitioner Acute Care; Visit Provider Nurse Practitioner Acute Care
DX: R05.9 Cough, unspecified (principal)
CPT/HCPCS: 94070; 95070

== ENCOUNTER → 2024-04-23 | Outpatient (CLI) | payer OTHER, SELFPAY ==
[2024-04-23 12:19] LABS: Absolute Lymphocyte Count 1.89 X10^3/uL (0.83-4.51); Absolute Neutrophil Count 4.3 X10^3/uL (2.0-7.7); Basophil# 0.05 X10^3/uL; Basophil% 0.7 % (0-1); Eosinophil# 0.07 X10^3/uL; Hematocrit 44.2 % (40-54); Hemoglobin 14.8 g/dL (13.0-16.5); Lymphocyte # 1.89 X10^3/ul (0.83-4.51); Lymphocyte % 26.7 % (19-41); Mean Corp Hgb Conc 33.5 g/dL (32-36); Mean Corpuscular Volume 89.5 fL (80-94); Mean Platelet Vol. 10.2 fl (6.2-12.0); Monocyte# 0.73 X10^3/uL; Monocyte% 10.3 % (0-10); NRBC Flagged by Analyzer 0 % (0-5); Neutrophil # 4.31 X10^3/uL (2.7-7.7); Platelet Count 277 K/mm3 (150-450); RBC Distribution Width CV 12.9 % (11.6-14.6); RBC Distribution Width SD 42.2 fl (35.1-43.9); Red Blood Count 4.94 M/mm3 (4.6-6.2); White Blood Count 7.1 K/mm3 (4.4-11.0)
[2024-04-23 13:05] LABS: ALB/GLOB Ratio 1.1 RATIO (0.9-2.4); AST(SGOT) 29 U/L (15-37); Alanine Aminotransfer ALT/SGPT 39 U/L (16-61); Albumin, Serum 3.6 g/dL (3.2-5.0); Alkaline Phosphatase 107 U/L (45-117); Anion Gap 7 (5-15); BUN 15 mg/dL (7-18); BUN/Creat Ratio 15.1 RATIO (10-20); Calcium,Total 8.6 mg/dL (8.5-10.1); Chloride 106 mmol/L (98-107); Cholesterol 184 mg/dL (200); EST Glomerular Filtration Rate 85 mL/min (>60); Est Glom Filt Rate - Afr Amer 103 mL/min (>60); Globulin 3.4 g/dL (2.2-4.2); Glucose 88 mg/dL (74-106); High Density Lipoprotein 45 mg/dL; Potassium 3.9 mmol/L (3.5-5.1); Sodium Level 139 mmol/L (136-145); Triglycerides 92 mg/dL; Very Low Density Lipoprotein 18 mg/dL (5-40)
== END | disposition home or self-care (01) ==
LOC: LAB 11:55
PROVIDERS: PCP Internal Medicine; Referring Provider Internal Medicine; Visit Provider Internal Medicine
DX: Z00.00 Encounter for general adult medical examination without abnormal findings (principal)
CPT/HCPCS: 80053; 80061; 85025

== ENCOUNTER → 2024-05-23 | Outpatient (CLI) | payer OTHER, SELFPAY ==
[2024-05-23 11:44] LABS: PSA,Total - Annual Screen 0.54 ng/mL (0.00-4.00)
== END | disposition home or self-care (01) ==
LOC: LAB 10:50
PROVIDERS: PCP Internal Medicine; Referring Provider Internal Medicine; Visit Provider Internal Medicine
DX: Z00.00 Encounter for general adult medical examination without abnormal findings (principal)
CPT/HCPCS: 36415; 84153; G0103

== ENCOUNTER 2024-06-22 08:42 | Day surgery (SDC) | payer OTHER, SELFPAY ==
[2024-06-22] VITALS (8 sets, daily range): BP systolic 97–141; BP diastolic 57–79; PULSE 59–66; RESP 14–18; TEMP 36.4–36.7; O2SAT 94–100; BMI 31.1
--- NOTE | 2024-06-22 09:17 | PCM.PRE.AN2 ---
ASA Classification* ASA Classification ASA Classification: 2 Assessment & Plan Anesthesia* Anesthesia Assessment Anesthesia Assessment: Discussed sedation and/or anesthesia options, risks, benefits, and alternatives with patient/parents/legal guardian/POA. Questions invited. The patient/parents/legal guardian/POA seems to understand and agrees to proceed with anesthesia plan. Reviewed the physical assessment, medical history, allergy history and patient home medications list prior to surgery/procedure/anesthetic and documented any changes. Performed airway and anesthesia risk assessments. Anesthesia Type Anesthesia Type: MAC Anesthesia Focused Assessment* Temperature: 97.6 F Pulse Rate: 66 Blood Pressure: 141/79 Respiratory Rate: 16 Pulse Ox: 100 Airway Assessment Mouth opens: >3 cm Mallampati Score: II Focused Labs Anesthesia Preop lab: CBC WBC 7.1 K/mm3 (4.4-11.0) 04/23/24 12:01 RBC 4.94 M/mm3 (4.6-6.2) 04/23/24 12:01 Hgb 14.8 g/dL (13.0-16.5) 04/23/24 12:01 Hct 44.2 % (40-54) 04/23/24 12:01 Plt Count 277 K/mm3 (150-450) 04/23/24 12:01 CHEMISTRY Potassium 3.9 mmol/L (3.5-5.1) 04/23/24 12:01 Sodium 139 mmol/L (136-145) 04/23/24 12:01 BUN 15 mg/dL (7-18) 04/23/24 12:01 Creatinine 1.00 mg/dL (0.70-1.30) 04/23/24 12:01 Glucose 88 mg/dL (74-106) 04/23/24 12:01 COAG Pre-Assessment Diagnosis/Proposed Procedure Planned Operative Procedure(s): CSCOPE Anesthesia History Anesthesia History - radiology transporter: Anesthesia History - radiology transporter Hx Hospitalization No 06/17/24 15:35 Any Problems With Anesthesia No 06/17/24 15:35 Cholinesterase deficiency No 06/17/24 15:35 You/Your Family Experience No 06/17/24 15:35 fever (hyperthermia) with Relationship Recent Exposure to Contagious No 06/22/24 09:04 Disease Does patient have nerve No 06/17/24 15:35 stimulator Patient instructed to have device shut off --Does patient have Pacemaker No 06/22/24 09:04 or ICD? When Was Last Pacemaker Check QUESTION #4 FULL TEXT: You/Your Family Experience fever (hyperthermia) with Anesthesia Last Oral Intake Last Oral intake: Last Oral Intake NPO since 05:00 06/22/24 09:04 Meds taken in AM with sips of Yes 06/22/24 09:04 water? Meds patient instructed to INHALER, AMLODIPINE, 06/22/24 09:04 take am of surgery PANTOPRAZOLE PONV PONV - radiology transporter: PONV - radiology transporter Female No 06/17/24 15:35 HX of Motion Sickness No 06/17/24 15:35 HX of N/V After Surgery No 06/17/24 15:35 Non-Smoker Yes 06/17/24 15:35 Duration of Surgery greater No 06/17/24 15:35 than 60 minutes Number of Risk Factors 1 06/17/24 15:35 PONV Score Low Risk 06/17/24 15:35 Height & Weight Height & Weight: Anesthesia: Height & Weight Height 6 ft 1 in 06/22/24 09:04 Weight: 107 kg 06/22/24 09:04 Body Mass Index (BMI) 31.1 06/22/24 09:04 Respiratory Assessment Respiratory Assessment - radiology transporter: Respiratory Tract Infection Hx - radiology transporter Hx Respiratory Tract Infection No 06/17/24 15:35 STOP Sleep Apnea STOP Sleep Apnea - radiology transporter: STOP Sleep Apnea - radiology transporter Hx Hypertension Yes: CONTROLLED WITH MED 06/17/24 15:35 Hx Sleep Apnea Yes: STUDY TESTED POSITIVE, 06/17/24 15:35 PULMOLOGIST SAID NO CPAP No 06/17/24 15:35 BIPAP No 06/17/24 15:35 Do you snore loudly (louder than talking or can be heard Do you often feel tired/ fatigued/ sleepy during daytime? Has anyone observed you stop breathing during sleep? STOP Results Positive 06/17/24 15:35 QUESTION #5 FULL TEXT : Do you snore loudly (louder than talking or can be heard through closed doors)? Tobacco Use History Tobacco Use History - radiology transporter: Tobacco Use History - radiology transporter Tobacco Use Smoking Status Never smoker 06/17/24 15:35 Hx Tobacco Use No 06/17/24 15:35 Years Smoking Packs Smoked per Day Smoking Cessation Date was within the last 15 years Hx Smoking Cessation Date Hx Smoking Cessation Counseling Hematologic Medial History Hematologic Hx - radiology transporter: Hematologic Medical Hx - blue leather setter Hx of Blood Transfusion No 06/17/24 15:35 Hx of Transfusion in last 3 No 06/17/24 15:35 Months Date of Last Transfusion (if within last 3 months) Ever experience any problems No 06/17/24 15:35 with transfusion(s)? Specify any problems Hx of Preganancy in last 3 N/A 06/17/24 15:35 Months Nurse Filling Out Transfusion NBUCHER 06/17/24 15:35 & Questions: Date: 06/17/24 06/17/24 15:35 Time: 15:37 06/17/24 15:35 Patient unable to answer at this time (ie. confused, unrespo /Reproduction History /Reproductive History - radiology transporter: /Reproductive Hx- radiology transporter Hx Now No 06/17/24 15:35 Gestational Age (in weeks): EDC: Hx Hx Para Hx Section SAB No 06/17/24 15:35 PFSH Medical History Wears glasses History of steroid therapy Diverticulosis Colon cancer screening Dermatitis History of hepatitis B BMI 35.0-35.9,adult Recurrent aspiration pneumonia Allergic rhinitis due to allergen Abnormal LFTs (liver function tests) Restrictive airway disease Hypersomnia Dyspnea Seasonal allergies Cervical radiculopathy Preventative health care Hypertension Encounter for screening for COVID-[address] Internal hemorrhoid, bleeding Chronic posterior anal fissure IBS (irritable bowel syndrome) GERD (gastroesophageal reflux disease) Back problem Home Medications ?Medication ?Instructions ?Recorded ?Last Taken ?Type benzonatate 100 mg capsule 100 mg PO BID PRN cough #60 caps 12/11/22 Unknown Rx triamcinolone acetonide 0.1 % 1 applic topical BID PRN 12/16/23 Unknown Rx topical cream Dermatitis #453.6 grams montelukast 10 mg tablet 10 mg PO DAILY PRN allergic 04/20/24 Unknown History (Singulair) symptoms amlodipine 5 mg tablet 5 mg PO DAILY #90 tabs 06/12/24 06/22/24 05:00 Rx beclomethasone dipropionate 80 2 inh inhalation Q12H 3 months 06/12/24 06/22/24 05:00 Rx mcg/actuation HFA breath activated #10.6 grams aerosol (Qvar RediHaler) fluticasone propionate 50 1 spray intranasal BID PRN for 06/12/24 Unknown Rx mcg/actuation nasal allergic rhinitis #16 grams spray,suspension levocetirizine 5 mg tablet (Xyzal) 5 mg PO DAILY #90 tabs 06/12/24 Unknown Rx pantoprazole 40 mg tablet,delayed 40 mg PO DAILY #90 tabs 06/12/24 06/22/24 05:00 Rx release Allergy/AdvReac Type Severity Reaction Status Date / Time grass pollen Allergy Severe Other Verified 06/17/24 15:33 house dust Allergy Severe Other Verified 06/17/24 15:33 house dust mite Allergy Severe Other Verified 06/17/24 15:33 ragweed pollen Allergy Severe Other Verified 06/17/24 15:33 corn Allergy Intermediate hives Verified 06/17/24 15:33 Family History Father Prostate cancer Other Alcoholism Arthritis CHF (congestive heart failure) Cancer Diabetes Heart disease Myocardial infarction Surgical History History of hemorrhoidectomy History of hemorrhoidectomy (~02/2021) History of colonoscopy Social History adopted: No household members: spouse and children number of children: 3 current occupational status: employed current occupation: [employer] pets and animals: No sexually active: Yes Smoking Status: Never smoker alcohol intake: current alcohol intake frequency: holidays/special occasions only substance use type: does not use diet: other caffeine: Yes (1-2) Type: coffee what type of physical activity do you participate in: none seatbelt use: always do you feel safe at home: Yes Review of Systems (Anesthesia) ROS Narrative System reviewed and no additional complaints, except as documented.
--- NOTE | 2024-06-22 09:34 | HP.PCM_ITS ---
HPI - General General Date of Admission: 06/22/24 Date of Service: 06/22/24 Chief Complaint: Polyp surveillance HPI Narrative EDGAR ODONNELL, is a 48 M who presents today for screening colonoscopy. He had a colonoscopy back in 2017 or 18. He had multiple tubular adenomas those removed by Dr. Wilson. He is not having any problems with his bowels at this time. He denies any chest pain or shortness of breath. Overall is in very good health. [facility] Medical History Wears glasses History of steroid therapy Diverticulosis Colon cancer screening Dermatitis History of hepatitis B BMI 35.0-35.9,adult Recurrent aspiration pneumonia Allergic rhinitis due to allergen Abnormal LFTs (liver function tests) Restrictive airway disease Hypersomnia Dyspnea Seasonal allergies Cervical radiculopathy Preventative health care Hypertension Encounter for screening for COVID-[address] Internal hemorrhoid, bleeding Chronic posterior anal fissure IBS (irritable bowel syndrome) GERD (gastroesophageal reflux disease) Back problem Home Medications ?Medication ?Instructions ?Recorded ?Last Taken ?Type benzonatate 100 mg capsule 100 mg PO BID PRN cough #60 caps 12/11/22 Unknown Rx triamcinolone acetonide 0.1 % 1 applic topical BID PRN 12/16/23 Unknown Rx topical cream Dermatitis #453.6 grams montelukast 10 mg tablet 10 mg PO DAILY PRN allergic 04/20/24 Unknown History (Singulair) symptoms amlodipine 5 mg tablet 5 mg PO DAILY #90 tabs 06/12/24 06/22/24 05:00 Rx beclomethasone dipropionate 80 2 inh inhalation Q12H 3 months 06/12/24 06/22/24 05:00 Rx mcg/actuation HFA breath activated #10.6 grams aerosol (Qvar RediHaler) fluticasone propionate 50 1 spray intranasal BID PRN for 06/12/24 Unknown Rx mcg/actuation nasal allergic rhinitis #16 grams spray,suspension levocetirizine 5 mg tablet (Xyzal) 5 mg PO DAILY #90 tabs 06/12/24 Unknown Rx pantoprazole 40 mg tablet,delayed 40 mg PO DAILY #90 tabs 06/12/24 06/22/24 05:00 Rx release Allergy/AdvReac Type Severity Reaction Status Date / Time grass pollen Allergy Severe Other Verified 06/17/24 15:33 house dust Allergy Severe Other Verified 06/17/24 15:33 house dust mite Allergy Severe Other Verified 06/17/24 15:33 ragweed pollen Allergy Severe Other Verified 06/17/24 15:33 corn Allergy Intermediate hives Verified 06/17/24 15:33 Family History Father Prostate cancer Other Alcoholism Arthritis CHF (congestive heart failure) Cancer Diabetes Heart disease Myocardial infarction Surgical History History of hemorrhoidectomy History of hemorrhoidectomy (~02/2021) History of colonoscopy Social History adopted: No household members: spouse and children number of children: 3 current occupational status: employed current occupation: [employer] pets and animals: No sexually active: Yes Smoking Status: Never smoker alcohol intake: current alcohol intake frequency: holidays/special occasions only substance use type: does not use diet: other caffeine: Yes (1-2) Type: coffee what type of physical activity do you participate in: none seatbelt use: always do you feel safe at home: Yes ROS Review of Systems ROS Unobtainable: other Constitutional Constitutional: Denies fatigue, fever(s), poor appetite, weight gain or weight loss ENT HEENT: Denies mouth lesions Cardiovascular Cardiovascular: Denies abdominal bloating, abdominal edema or abdominal pain Respiratory/Chest Respiratory/Chest: Denies change in mental status, change in phlegm color, chest congestion or chest tightness Gastrointestinal Gastrointestinal: Denies belching, bloating, change in bowel habits, change in stool character, chewing difficulty, coffee ground emesis, constipation, cramping, diarrhea, dyspepsia, dysphagia, early satiety, excessive flatus, fecal incontinence, heartburn, hematemesis, hematochezia, hemorrhoids, loose stools, melena, nausea, odynophagia, rectal bleeding, tenesmus, vomiting or weight changes Genitourinary Genitourinary: Denies abdominal discomfort, burning urination or itching Musculoskeletal Musculoskeletal: Reports as per HPI; Denies muscle weakness or myalgias Integumentary Integumentary: Denies jaundice Neurologic Neurologic: Denies lack of coordination or weakness Psychiatric Psychiatric: Denies confusion, depression, memory loss, mood swings, paranoia or suicidal ideation Endocrine Endocrinology: Denies systems reviewed and no addt'l complaints, except as documented Hematologic/Lymphatic Hematologic/Lymphatic: Denies anemia, easy bleeding, easy bruising or lym phadenopathy Allergic/Immunologic Allergic/Immunologic: Denies systems reviewed and no addt'l complaints, except as documented Vital Signs Vital Signs Vital Signs: 06/22/24 09:04 06/22/24 09:04 06/22/24 09:18 Temperature 97.6 F L 97.6 F L Temperature Source Temporal Pulse Rate 66 66 Respiratory Rate 16 16 Respiratory Pattern Normal Blood Pressure 141/79 H 141/79 H Blood Pressure Mean 99 Blood Pressure Source Monitor Blood Pressure Position Semi-Fowlers Blood Pressure Location Left Arm Pulse Ox 100 100 Oxygen Delivery Method Room Air Weight Weight: 235 lb 14.314 oz Body Mass Index (BMI) 31.1 Physical Exam Const alert General Appearance: cooperative Orientation / Consciousness: oriented to person HEENT hearing grossly normal bilaterally Head and Scalp: normal to inspection Face and Sinus: face symmetric Nose: external nose normal Mouth: oral and palatal mucosa normal Eyes conjunctivae normal General Eye: normal appearance of both eyes Neck full ROM General: normal visual inspection Lymph Lymphatic: no lymphadenopathy noted Chest inspection of chest normal and palpation of chest normal Chest: symmetrical chest wall rise Resp normal respiratory effort Effort and Inspection: able to speak in complete sentences Cardio regular rate GI non-distended Percussion: normal to percussion Rectal Exam: deferred Neuro Speech: speech normal Gait (Neuro): normal gait Assessment & Plan Assessment/Plan (1) Personal history of colon polyps, unspecified: PLAN: He was explained alternatives, risk, benefits include not withstanding bleeding, infection, sepsis, perforation, need for emergent urgent . He will have an ASA of 3.
--- NOTE | 2024-06-22 09:45 | COLBX_PTH ---
PATIENT: EDGAR ODONNELL LOC: EN U#:[id number] AGE/SX: 48/M ROOM: RE06/22/[address]: Dr. James Vang DO : 1975 BED: DIS: 06/22/2024 SPEC #: [id number] RECD: 06/22/24 13:40 STATUS: STEPHANIE REQ #: [id number] REENA: 06/22/24 09:[address]: James Vang DEPT: SURGICAL PATHOLOGY RECD BY: Sruthi Garcia ENTERED: 06/22/24 14:10 SP TYPE: COLON BX OTHR DR: Dr. Cheo De Leon MD Tissues: Rectum, NOS Procedures: Surgery Specimen Level IV HEADER OPERATION: Colonoscopy, polypectomy with cautery PRE-OP DIAGNOSIS: History of polyps, multiple tubular adenomas TISSUE SUBMITTED: Rectal polyp MICROSCOPIC DIAGNOSIS Rectal polyp, biopsy: Fragments of tubular adenoma. AM.mr 06/23/2024 MICROSCOPIC DESCRIPTION Slides are reviewed. GROSS DESCRIPTION Received in fixative is one container labeled with the patient's name and designated Rectal polyp. The specimen consists of multiple irregular fragments of light shaffer soft tissue that in aggregate measure 1.6 x 0.5 x 0.1 cm. The specimen is totally submitted in one cassette. . 06/22/2024 TC:5 CPT:11916
--- NOTE | 2024-06-22 10:33 | OP.CCLET_ITS ---
06/22/2024 Cheo De Leon MD [address] [place] [address] [place] [address] Re : Colonoscopy procedure for Yann Myra Dear Dr. De Leon This procedure was performed on Saturday, June 22, 2024. My impressions and recommendations are as follows: Impressions : - One 8 mm polyp in the rectum, removed with a hot snare. Resected and retrieved. - The examination was otherwise normal on direct and retroflexion views. Recommendations : - Discharge patient to home. - Resume previous diet. - Continue present medications. - Await pathology results. - Repeat colonoscopy in 5 years for surveillance. My findings are described in the full procedure note, which is enclosed. If I can be of further assistance, please feel free to contact me at . Sincerely, James Vang, 06/22/2024 10:32:46 AM This report has been signed electronically.
--- NOTE | 2024-06-22 10:33 | OP.COLON_ITS ---
Patient Name: Yann Renteria Procedure Date: 06/22/2024 10:08 AM Date of : 1975 Age: 48 Procedure: Colonoscopy Indications: High risk colon cancer surveillance: Personal history of colonic polyps Providers: James Vang DO Medicines: Monitored Anesthesia Care Patient Profile: This is a 48 year old male. Refer to note in patient chart for documentation of history and physical. Last Colonoscopy: several years ago. Complications: No immediate complications. Procedure: Pre-Anesthesia Assessment: - Prior to the procedure, a History and Physical was performed, and patient medications and allergies were reviewed. The patient is competent. The risks and benefits of the procedure and the sedation options and risks were discussed with the patient. All questions were answered and informed consent was obtained. Patient identification and proposed procedure were verified by the physician in the pre-procedure area. Mental Status Examination: alert and oriented. Airway Examination: normal oropharyngeal airway and neck mobility. Respiratory Examination: clear to auscultation. CV Examination: normal. Prophylactic Antibiotics: The patient does not require prophylactic antibiotics. Prior Anticoagulants: The patient has taken no anticoagulant or antiplatelet agents except for NSAID medication. ASA Grade Assessment: II - A patient with mild systemic disease. After reviewing the risks and benefits, the patient was deemed in satisfactory condition to undergo the procedure. The anesthesia plan was to use monitored anesthesia care (MAC). Immediately prior to administration of medications, the patient was re-assessed for adequacy to receive sedatives. The heart rate, respiratory rate, oxygen saturations, blood pressure, adequacy of pulmonary ventilation, and response to care were monitored throughout the procedure. The physical status of the patient was re-assessed after the procedure. After I obtained informed consent, the scope was passed under direct vision. Throughout the procedure, the patient's blood pressure, pulse, and oxygen saturations were monitored continuously. The pediatric colonoscope was introduced through the anus and advanced to the cecum, identified by appendiceal orifice and ileocecal valve. The colonoscopy was performed without difficulty. The patient tolerated the procedure well. The quality of the bowel preparation was adequate. The ileocecal valve, appendiceal orifice, and rectum were photographed. Scope In: 10:16:56 AM Scope Withdrawal Time 0 hours 8 minutes 36 seconds Scope Out: 10:29:30 AM Total Procedure Duration Time 0 hours 12 minutes 34 seconds Findings: The perianal and digital rectal examinations were normal. An 8 mm polyp was found in the rectum. The polyp was sessile. The polyp was removed with a hot snare. Resection and retrieval were complete. Verification of patient identification for the specimen was done. Estimated blood loss was minimal. The exam was otherwise without abnormality on direct and retroflexion views. Impression: - One 8 mm polyp in the rectum, removed with a hot snare. Resected and retrieved. - The examination was otherwise normal on direct and retroflexion views. Recommendation: - Discharge patient to home. - Resume previous diet. - Continue present medications. - Await pathology results. - Repeat colonoscopy in 5 years for surveillance. Procedure Code(s): --- Professional --- 13410, Colonoscopy, flexible; with removal of tumor(s), polyp(s), or other lesion(s) by snare technique CPT copyright 2021 [employer]. All rights reserved. The codes documented in this report are preliminary and upon sales applications engineer review may be revised to meet current compliance requirements. James Vang DO 06/22/2024 10:32:46 AM This report has been signed electronically. Number of Addenda: 0 Note Initiated On: 06/22/2024 10:08 AM
--- NOTE | 2024-06-22 10:36 | PCM.POST.ANE ---
Anesthesia: Postop Eval I Current Vital Signs Temperature: 98.1 F Pulse Rate: 64 Blood Pressure: 98/67 Respiratory Rate: 14 Pulse Ox: 96 Oxygen Delivery Method: Room Air Assessment Airway patent: Yes Spontaneous unlabored respirations: Yes Mental status: Asleep nausea: No Vomiting: No Anesthesia Complication: No Fluid Hydration Crystalloid volume administer (ml): 30 Total IV fluid infused: 30 Progress Note Anesthesia document: Postop Eval 1 completed: Yes
--- NOTE | 2024-06-22 10:54 | PCM.POSTANE2 ---
Anesthesia Postop Eval I Sum Postop Eval Completion status Anesthesia document: Postop Eval 1 completed: Yes Anesthesia Postop Eval I Summary Anesthesia Postop Eval I Summary: Anesthesia Postop Eval I: Assessment Summary Airway patent Yes 06/22/24 10:37 [email or web address] Spontaneous unlabored Yes 06/22/24 10:37 [email or web address] respirations Mental status Asleep 06/22/24 10:37 [email or web address] nausea No 06/22/24 10:37 [email or web address] Vomiting No 06/22/24 10:37 [email or web address] Anesthesia Postop Eval I: Fluid Summary Crystalloid volume administer 30 06/22/24 10:37 [email or web address] (ml) Colloids volume administered ( ml) Blood Product volume administered (ml) Total IV fluid infused 30 06/22/24 10:37 [email or web address] Anesthesia Postop Eval I: Summary Notes Anesthesia Complication No 06/22/24 10:37 [email or web address] Anesthesia Complication Comment: Post-operative progress note Anesthesia: Postop Eval II Evaluation Mental status: Awake Pain Level: 0 nausea: No Vomiting: No
== END 2024-06-22 11:18 | disposition home or self-care (01) ==
LOC: EN 08:44 → AC 08:45
PROVIDERS: PCP Internal Medicine; Referring Provider Internal Medicine; Visit Provider Internal Medicine Gastroenterology
PROC: 0DJD8ZZ Inspection of Lower Intestinal Tract, Via Natural or Artificial Opening Endoscopic (ICD-10-PCS; CPT 45378; principal; 2024-06-22 09:40)
DX: Z12.11 Encounter for screening for malignant neoplasm of colon (principal); D12.8 Benign neoplasm of rectum; I10 Essential (primary) hypertension; K21.9 Gastro-esophageal reflux disease without esophagitis; Z86.0100 Personal history of colon polyps, unspecified; Z79.899 Other long term (current) drug therapy
CPT/HCPCS: 45385; 88305; A4216; J2405

== ENCOUNTER → 2024-08-31 | Outpatient (CLI) | payer OTHER, SELFPAY ==
[2024-08-31 12:11] LABS: Absolute Lymphocyte Count 1.71 X10^3/uL (0.83-4.51); Absolute Neutrophil Count 4.2 X10^3/uL (2.0-7.7); Basophil# 0.04 X10^3/uL; Basophil% 0.6 % (0-1); Eosinophil# 0.09 X10^3/uL; Eosinophils% 1.3 % (0-5); Hematocrit 50.1 % (40-54); Hemoglobin 16.3 g/dL (13.0-16.5); Lymphocyte # 1.71 X10^3/ul (0.83-4.51); Lymphocyte % 25.4 % (19-41); Mean Corp Hgb Conc 32.5 g/dL (32-36); Mean Corpuscular Hgb 29.3 pg (27.0-32.0); Mean Corpuscular Volume 90.1 fL (80-94); Mean Platelet Vol. 10.3 fl (6.2-12.0); Monocyte# 0.68 X10^3/uL; Monocyte% 10.1 % (0-10); NRBC Flagged by Analyzer 0 % (0-5); Neutrophil # 4.19 X10^3/uL (2.7-7.7); Neutrophil % 62.3 % (47-70); Platelet Count 307 K/mm3 (150-450); RBC Distribution Width CV 12.7 % (11.6-14.6); RBC Distribution Width SD 41.6 fl (35.1-43.9); Red Blood Count 5.56 M/mm3 (4.6-6.2); White Blood Count 6.7 K/mm3 (4.4-11.0)
[2024-09-04 22:06] LABS: Complement CH50 > 60 U/mL (>41); IgG, Quant 1168 mg/dL (603-1613); Immunoglobulin A 305 mg/dL (90-386); Immunoglobulin E 704 IU/mL (6-495); Immunoglobulin G, Subclass 1 559 mg/dL (248-810); Immunoglobulin G, Subclass 2 244 mg/dL (130-555); Immunoglobulin G, Subclass 3 50 mg/dL (15-102); Immunoglobulin G, Subclass 4 59 mg/dL (2-96); Immunoglobulin M 41 mg/dL (20-172)
== END | disposition home or self-care (01) ==
PROVIDERS: PCP Internal Medicine; Referring Provider Specialist; Visit Provider Specialist
DX: J30.9 Allergic rhinitis, unspecified (principal); J45.50 Severe persistent asthma, uncomplicated; R06.00 Dyspnea, unspecified; J32.9 Chronic sinusitis, unspecified; T78.3XXD Angioneurotic edema, subsequent encounter; T78.09XD Anaphylactic reaction due to other food products, subsequent encounter; Z91.038 Other insect allergy status; E55.9 Vitamin D deficiency, unspecified; E07.9 Disorder of thyroid, unspecified; D84.9 Immunodeficiency, unspecified
CPT/HCPCS: 36415; 82784; 82785; 82787; 85025; 86162

== ENCOUNTER → 2025-04-14 | Outpatient (CLI) | payer OTHER, SELFPAY ==
[2025-04-14 12:42] LABS: Hematocrit 48.9 % (40-54); Hemoglobin 16.2 g/dL (13.0-16.5); Immature Granulocytes Count 0.020 X10^3/uL (0.0-0.0); Mean Corp Hgb Conc 33.1 g/dL (32-36); Mean Corpuscular Volume 90.7 fL (80-94); Mean Platelet Vol. 10.7 fl (6.2-12.0); NRBC Flagged by Analyzer 0 % (0-5); Platelet Count 287 K/mm3 (150-450); RBC Distribution Width CV 12.9 % (11.6-14.6); RBC Distribution Width SD 42.2 fl (35.1-43.9); Red Blood Count 5.39 M/mm3 (4.6-6.2); White Blood Count 6.5 K/mm3 (4.4-11.0)
[2025-04-14 13:15] LABS: AST(SGOT) 19 U/L (<=37); Alanine Aminotransfer ALT/SGPT 19 U/L (<=46); Albumin, Serum 4.4 g/dL (3.5-5.0); Alkaline Phosphatase 103 U/L (40-129); Anion Gap 12 (5-15); BUN 13 mg/dL (4-19); BUN/Creat Ratio 12.7 RATIO (10-20); Calcium,Total 9.4 mg/dL (7.6-11.0); Carbon Dioxide 25.2 mmol/L (21.0-32.0); Chloride 104 mmol/L (98-108); Cholesterol 204 mg/dL (<=200); Globulin 3.0 g/dL (2.2-4.2); Glucose 99 mg/dL (70-99); Low Density Lipoprotein Calc. 146 mg/dL; Potassium 4.3 mmol/L (3.3-5.1); Triglycerides 73 mg/dL; Very Low Density Lipoprotein 15 mg/dL (5-40); cholesterol:hdl ratio screen 4.66
== END | disposition home or self-care (01) ==
LOC: BIMLAB 09:27
PROVIDERS: PCP Internal Medicine; Referring Provider Internal Medicine; Visit Provider Internal Medicine
DX: I10 Essential (primary) hypertension (principal)
CPT/HCPCS: 36415; 80053; 80061; 85025

== ENCOUNTER → 2025-05-24 | Outpatient (CLI) | payer OTHER, SELFPAY ==
[2025-05-24 17:35] LABS: Cholesterol 182 mg/dL (<=200); Low Density Lipoprotein Calc. 116 mg/dL; Triglycerides 104 mg/dL; Very Low Density Lipoprotein 21 mg/dL (5-40); cholesterol:hdl ratio screen 4.05
[2025-05-25 15:27] LABS: PSA,Total - Annual Screen 0.47 ng/mL (0.02-4.00)
== END | disposition home or self-care (01) ==
LOC: LAB 15:51
PROVIDERS: PCP Internal Medicine; Referring Provider Internal Medicine; Visit Provider Internal Medicine
DX: I10 Essential (primary) hypertension (principal)
CPT/HCPCS: 36415; 80061; 84153; G0103